=== PATIENT | female | born 1990 | race African-American/Black ===

== ENCOUNTER → 2018-01-04 | Outpatient (CLI) | payer OTHER ==
--- NOTE | 2018-01-05 17:32 | EEG Procedure Note ---
EEG Procedure Note Date of Service Jan 04, 2018. Start / End Times Start Time: 9:21 AM End Time: 9:42 AM Referring Physician Jeanna Kidd History This is a 27-year-old female with episodes and anxiety, cognitive impairment, paresthesias, visual disturbance. EEG for further evaluation of possible seizure etiology. Description This is a 21 electrode EEG with a single channel dedicated to limited EKG. The electrodes were placed in accordance with the International 10-20 system. At the start of the recording the patient was in an awake state. Background was well organized and composed of symmetric mixed alpha and beta frequencies. There was a symmetric well-formed moderate amplitude 10-11 Hz posterior dominant rhythm that was reactive to eye opening and closure. Hyperventilation was not done. Intermittent photic stimulation at various frequencies produced no abnormalities. Drowsiness was indicated by loss of muscle artifact and slowing of the background rhythm. There was no sleep transients. Interpretation This is a normal awake and drowsy routine EEG. There was no electrographic seizures or epileptiform discharges. Clinical Correlation A normal EEG does not rule out epilepsy if there is a strong clinical suspicion.
== END | disposition home or self-care (01) ==
LOC: C.NEUR 09:08
PROVIDERS: ATTEND Psychiatry & Neurology Neurology
DX: R41.89 Other symptoms and signs involving cognitive functions and awareness (principal); H53.9 Unspecified visual disturbance

== ENCOUNTER → 2018-01-05 | Outpatient (CLI) | payer OTHER ==
[~2018-01-05] MED LIST: GADAVIST IV PRN
--- NOTE | 2018-01-05 09:40 | DIAGNOSTIC IMAGING REPORT ---
BRAIN COMBO FOR MS HISTORY: Neurologic deficit. Visual disturbance. Paresthesias. M79.601 Paresthesia and pain of both upper [id number] An TECHNIQUE: Multiplanar multisequence MRI of the brain was performed both before and after the intravenous administration of contrast. COMPARISON STUDY: None. FINDINGS: There are no areas of restricted diffusion to suggest acute infarction. The midline structures are intact. The paranasal sinuses are clear. The mastoid air cells are clear. The ventricles and sulci are within normal limits for age. There is no mass, hematoma, midline shift. The major vascular flow-voids at the skull base are well maintained. Postcontrast sequences show no areas of abnormal enhancement. IMPRESSION: No acute intracranial abnormality. No evidence for abnormal postcontrast enhancement. Normal study. The above report was generated using voice recognition software. It may contain grammatical, syntax or spelling errors. Electronically signed by: Freddy Parra M.D. 01/05/2018 9:39 AM Dictated Date/Time: 01/05/2018 9:29 AM
--- NOTE | 2018-01-05 09:42 | DIAGNOSTIC IMAGING REPORT ---
MRI OF THE CERVICAL SPINE WITH AND WITHOUT CONTRAST CLINICAL HISTORY: Paresthesias and pain of the bilateral upper extremity. Visual disturbances. Multiple sclerosis like symptoms. COMPARISON: None. TECHNIQUE: Utilizing a 1.5 Birdie magnet and dedicated coil, multiplanar, multiecho imaging of the cervical spine was performed before and after intravenous administration of 9 of Gadavist. FINDINGS: Alignment of the cervical spine is anatomic. Vertebral body heights are maintained. Cervical cord signal and caliber are normal. There is no intracanalicular mass or fluid collection. Paravertebral soft tissues are unremarkable. Visualized portions of the posterior fossa are unremarkable however the brain MRI will be reported separately. C2-C3: The central canal and neural foramen are patent. C3-C4: Central canal neural foramina patent. C4-C5: There is a tiny central disc protrusion. The central canal and neural foramen are patent. C5-C6: There is a tiny central disc protrusion. The central canal and neural foramen are patent. C6-C7: Central canal neural foramen are patent. C7-T1: The central canal and neural foramen are patent. IMPRESSION: 1. Normal cervical cord signal and caliber. 2. No intracanalicular mass or fluid collection. 3. Minimal degenerative changes of the cervical spine, as described above. Patent central canal and neural foramen. Electronically signed by: Brad Norton M.D. 01/05/2018 9:41 AM Dictated Date/Time: 01/05/2018 9:31 AM
== END | disposition home or self-care (01) ==
LOC: C.MRIBC 07:14
PROVIDERS: ATTEND Psychiatry & Neurology Neurology
DX: R41.89 Other symptoms and signs involving cognitive functions and awareness (principal); F41.9 Anxiety disorder, unspecified; H53.9 Unspecified visual disturbance; R20.2 Paresthesia of skin; M79.601 Pain in right arm; M79.602 Pain in left arm; M50.221 Other cervical disc displacement at C4-C5 level